=== PATIENT | female | born 1935 | race Caucasian/White ===

== ENCOUNTER 2019-04-22 09:58 | Outpatient (CLI) | payer MEDICARE ==
--- NOTE | 2019-04-22 11:41 | RAD ---
LEFT HAND THREE VIEWS: HISTORY: Ring finger pain since a fall three days ago. 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 There are severe arthritic changes of the triscaphe a nd first carpometacarpal joint space as well as the distal and proximal interphalangeal joints and th e metacarpophalangeal joint levels. There is an obliquely oriented intraarticular fracture involving the radial corner of the base of the proximal phalanx of the ring finger. The fracture involves both the volar and radial side and is associated with dislocation at the PIP joint. IMPRESSION: Intraarticular fracture-dislocation of the proximal interphalangeal joint of the ring finger. POS: ARAVIND
== END 2019-04-22 09:59 | disposition home or self-care (01) ==
LOC: BICRAD 09:58
PROVIDERS: ATTEND Nurse Practitioner Family
DX: M79.645 Pain in left finger(s) (principal); S62.615A Displaced fracture of proximal phalanx of left ring finger, initial encounter for closed fracture

== ENCOUNTER 2019-05-07 06:12 | Outpatient (CLI) | payer MEDICARE ==
[2019-05-07 12:47] LABS: Bacteria/HPF None Seen HPF (None Seen); Bilirubin Negative (Negative); Blood, Urine 1+ (Negative); Clarity Clear (Clear); Glucose, Urine (Dipstick) Normal (Negative); Leukocyte 250 Leu/uL (Negative); Nitrite Negative (Negative); Protein, Urine (Dipstick) Negative (Neg-Trace); Urobilinogen Normal mg/dL (Less than 2)
[2019-05-07 13:00] LABS: Anion Gap 14 mmol/L (10-20); BUN (Urea Nitrogen) 21 mg/dL (9.8-20.1); Calc. Creatinine Clearance 0 mL/min (70-130); Calcium 9.4 mg/dL (7.8-10.44); Carbon Dioxide 26 mmol/L (23-31); Chloride 104 mmol/L (98-107); Estimated GFR-MDRD 71; Glucose 130 mg/dL (83-110); Potassium 4.4 mmol/L (3.5-5.1); Sodium 140 mmol/L (136-145)
[2019-05-07 13:31] LABS: Band 4 % (5-11); Eosinophils 2 % (0-10); Hemoglobin 12.9 g/dL (12.0-16.0); Lymphocytes 22 % (21-51); MDiff Complete? YES; Mean Corpuscular HGB CONC 32.8 g/dL (32.0-36.0); Mean Corpuscular Hemoglobin 31.4 pg (27.0-31.0); Mean Corpuscular Volume 95.5 fL (78.0-98.0); Mean Platelet Volume 6.3 fL (7.4-10.4); Monocytes 8 % (0-10); Neutrophil 64 % (42-75); Platelet Count 352 thou/uL (130-400); RBC Distribution Width 10.9 % (11.5-14.5); RBC Morphology Normal; Red Blood Cell (RBC) Count 4.11 mill/uL (4.20-5.40); White Blood Cell (WBC) Count 7.4 thou/uL (4.8-10.8)
--- NOTE | 2019-05-12 12:54 | EKG ---
Test Reason : Blood Pressure : / mmHG Vent. Rate : 075 BPM Atrial Rate : 075 BPM P-R Int : 152 ms QRS Dur : 072 ms QT Int : 392 ms P-R-T Axes : 076 060 059 degrees QTc Int : 437 ms Normal sinus rhythm Normal ECG No previous ECGs available Confirmed by CASSANDRA COTTON (2) on 05/12/2019 12:54:22 PM Referred By: [email or web address] Confirmed By:CASSANDRA COTTON
== END 2019-05-07 06:13 | disposition home or self-care (01) ==
LOC: LABBT 06:12
PROVIDERS: ATTEND Orthopaedic Surgery Hand Surgery
DX: Z01.818 Encounter for other preprocedural examination (principal); S62.605A Fracture of unspecified phalanx of left ring finger, initial encounter for closed fracture
CPT/HCPCS: 80048; 81001; 85007; 85027; 93005; 93010

== ENCOUNTER 2019-05-08 11:53 | Day surgery (SDC) | payer MEDICARE ==
[2019-05-07 11:59] VITALS: BMI 20.7
[~2019-05-08 11:53] MED LIST: Dexamethasone 20 MG/5 ML VIAL ONE; Lidocaine 1% PF 5 ML VIAL ONE; Ondansetron PF 4 MG/2 ML Vial ONE; PROPOFOL 200 MG/20 ML VIAL ONE; ePHEDrine/0.9% NaCl/PF SYRINGE 50 mg/10 ml ONE
[2019-05-08] MEDS ORDERED: Sodium Chloride 0.9% 10 ML ONE (13:36)
[2019-05-08] MEDS ORDERED: Bupivacaine PF 0.5% 30 ML VIAL ONE (13:36)
[2019-05-08] MEDS ORDERED: Bacitracin Zinc Ointment 30 gm TUBE ONE (13:36)
[2019-05-08] MEDS ORDERED: Fentanyl 100 MCG/2 ML VIAL ONE (13:53)
[2019-05-08] MEDS ORDERED: Ondansetron PF 4 MG/2 ML Vial ONE (17:16)
--- NOTE | 2019-05-08 18:05 | RAD ---
3 views left fourth finger: 05/08/2019 COMPARISON: 04/22/2019 HISTORY: ORIF FINDINGS: 3 intraoperative images are provided demonstrating placement of multiple screws traversing the previously noted fracture at the base of the fourth middle phalanx. IMPRESSION: Intraoperative imaging as above.
--- NOTE | 2019-05-09 14:23 | OP ---
DATE OF PROCEDURE: 05/08/2019 PREOPERATIVE DIAGNOSIS: Left proximal phalangeal joint dorsal fracture, dislocation with 65% comminuted volar lip fragment. FINDINGS: Volar lip fragment with 65% to 70% of articular surface including the comminution even underneath the dorsal portion which would not hold fixation. PROCEDURES PERFORMED: 1. Open reduction and internal fixation, left ring finger, middle phalanx base fracture and fracture, dislocation using flor-hamate bone graft. 2. Bone graft to the hamate with fixation. 3. C-arm supervision. SPECIMEN REMOVED: Crushed 65% of joint surface in the sagittal plane. TOURNIQUET TIME: 120 minutes. ESTIMATED BLOOD LOSS: 20 mL. DESCRIPTION OF PROCEDURE: After successful general endotracheal anesthesia, the limb was prepped and draped. Initially, gave her 10 mL of 0.5% Marcaine block at metacarpophalangeal joint and 10 at the flor-hamate approach site. We initially inflated tourniquet, exsanguinated the limb for 30 seconds, and made a palmar approach. We initially released the collateral ligament's midportion on the radial side where there was a fragment off radially and left the volar plate on the entire central and ulnar 1/2. With this, with volar plate still attached to the fragment, we made several gentle attempts to do a reduction with fixation, but the fragment not even hold a 1.0 K-wire. For this reason, we removed the fragment, we then made a complete approach to "shotgun" the joint. We released the contralateral ulnar collateral, released the volar plate off the fragment, maintained as much volar plate as possible and then, released the same radial side insertion of the flexor digitorum superficialis by about 1/3. We also released 1/3 of the A3 bing and the flexor tendon sheath. We then were able to take the entire tendon mass ulnarly, and we were able to completely shotgun back to back the base of the middle phalanx with the proximal phalanx neck. With this, we saw that there was only a 3.5 mm rim of bone left with an area that should be almost 11 mm to 12 mm, so I felt the 2/3 of the surface was comminuted. With this in mind, we saw to harvest a piece of flor-hamate that would allow us to have approximately 11 mm concentric surface to maintain a bony stability. We then on shotgun of the joint, placed a moist Ray-Meg sponge with normal saline and then proceeded to the 4th and 5th carpometacarpal joints. With C-arm guidance to make a small incision possible in the zigzag incision, we dissected and found the superficial ulnar nerve branches and protected them. We then retracted the extensor tendons and visualized the capsule over the 4th and 5th interspaces right into the lip between the 2 metacarpal bases. We had measured a width of approximately 1 cm and we knew what depth we needed, so we then planned with a sagittal saw a box shaped cut. We distracted maximally the joint surface and using 2 small curved osteotomes was able to extract the articular surface without comminution even though her bone was very osteopenic. We then took it back to back table, shaved it, reversed the articular surface, so that it would match and now we had a total of 11 mm of articular surface. We then gently rongeured the surface of the match with a concavity, and then placed a fixation wire central to hold in place. We measured amount of wire and it was a 10, so we felt we had a 10-11 reconstruction total with counting the flor-hamate graft and the 1/3 dorsal piece still in place. We then placed two 1.1 screws. The 1st one in the lag position and the 2nd one standard without protrusion and without comminution of the graft or the articular surface. It easily reduced the main concentric from 30 to 60 degrees and even concentric in full extension. We then closed the volar plate portion on the ulnar side back to the collateral ligament, repaired the collateral ligament on the radial side, repaired the 1/3 of portion of the A3 bing with a 3-0 suture and reduced the flexor tendons. C-arm confirmed the joint was concentric. No visible step-off was seen with true lateral projection with C-arm and the total surface measured approximately 11 mm. The patient then had the hemostasis obtained at the articular surface at the base of the carpometacarpal joints, 4th and 5th and we released the tourniquet. We then shaved a piece of a cancellous bone graft to fit the defect, and used a 14 screw to hold this in place obliquely, a 1.3 size from the AO/KENNY hand variable angle set. The patient had the C-arm to make final pictures, again it was stable from 0 to 60 degrees. After closing the incision, obtained hemostasis, at the finger with just 4-0 nylon, in 30 degrees of palmar flexion. We then turned attention to the 4th and 5th carpometacarpal wounds. We closed the joint capsule over the carpometacarpal joint with interrupted [id number] 3-0 Vicryl. We used 4-0 nylon in interrupted simple pattern to close the dermis, epidermis. We gave an additional 6 mL in the metacarpal portion of the finger for additional block and additional 4 on the hamate harvest site. The patient had a smooth range of motion in that range and not tested beyond the range listed, placed in the splint which included the ring finger, small finger, and middle finger leaving the index finger free and the digits were pink. She left the operating room without evidence of anesthetic or operative complication. Job ID: [id number]
== END 2019-05-08 19:30 | disposition home or self-care (01) ==
LOC: SDC 11:53
PROVIDERS: ATTEND Orthopaedic Surgery Hand Surgery
PROC: 0PSV04Z Reposition Left Finger Phalanx with Internal Fixation Device, Open Approach (ICD-10-PCS; principal; 2019-05-08)
DX: S62.625A Displaced fracture of middle phalanx of left ring finger, initial encounter for closed fracture (principal); M81.0 Age-related osteoporosis without current pathological fracture; Z79.82 Long term (current) use of aspirin; Z79.899 Other long term (current) drug therapy
CPT/HCPCS: 76000; C1713; J0690; J1100; J2001; J2405; J2704; J3010; J3490; S0020

== ENCOUNTER 2019-06-26 09:28 | Outpatient (CLI) | payer MEDICARE ==
[2019-06-26 16:23] LABS: #Eosinphils 0.1 thou/uL (0.0-0.7); #Lymphocytes 2.4 thou/uL (1.20-3.40); #Monocytes 0.8 thou/uL (0.11-0.59); #Neutrophils 3.4 thou/uL (1.40-6.50); %Basophils 0.5 % (0.0-1.0); %Eosinophils 1.8 % (0.0-10.0); %Lymphocytes 35.4 % (21.0-51.0); %Monocytes 11.8 % (0.0-10.0); %Neutrophils 50.5 % (42.0-75.0); Hemoglobin 13.2 g/dL (12.0-16.0); Mean Corpuscular HGB CONC 33.2 g/dL (32.0-36.0); Mean Corpuscular Hemoglobin 31.8 pg (27.0-31.0); Mean Corpuscular Volume 95.7 fL (78.0-98.0); Platelet Count 253 thou/uL (130-400); RBC Distribution Width 11.3 % (11.5-14.5); Red Blood Cell (RBC) Count 4.16 mill/uL (4.20-5.40); White Blood Cell (WBC) Count 6.6 thou/uL (4.8-10.8)
[2019-06-26 16:44] LABS: Anion Gap 9 mmol/L (10-20); BUN (Urea Nitrogen) 20 mg/dL (9.8-20.1); Calc. Creatinine Clearance 0 mL/min (70-130); Calcium 8.9 mg/dL (7.8-10.44); Carbon Dioxide 31 mmol/L (23-31); Chloride 105 mmol/L (98-107); Estimated GFR-MDRD 73; Glucose 104 mg/dL (83-110); Sodium 141 mmol/L (136-145)
--- NOTE | 2019-06-28 15:23 | EKG ---
Test Reason : Blood Pressure : / mmHG Vent. Rate : 072 BPM Atrial Rate : 072 BPM P-R Int : 154 ms QRS Dur : 066 ms QT Int : 408 ms P-R-T Axes : 073 082 044 degrees QTc Int : 446 ms Normal sinus rhythm Normal ECG When compared with ECG of 07-MAY-2019 12:12, No significant change was found Confirmed by DR. Rayo PATRICK ([id number]) on 06/28/2019 3:23:11 PM Referred By: LEEANNA Confirmed By:DR. Rayo PATRICK
== END 2019-06-26 09:29 | disposition home or self-care (01) ==
LOC: LABBT 09:28
PROVIDERS: ATTEND Orthopaedic Surgery Hand Surgery
DX: Z01.818 Encounter for other preprocedural examination (principal); S62.625A Displaced fracture of middle phalanx of left ring finger, initial encounter for closed fracture
CPT/HCPCS: 80048; 85025; 93005; 93010

== ENCOUNTER 2019-06-28 08:52 | Day surgery (SDC) | payer MEDICARE ==
[2019-06-26 13:43] VITALS: BMI 21.9
[2019-06-28] MEDS ORDERED: Bacitracin Zinc Ointment 30 gm TUBE ONE (12:26)
[2019-06-28] MEDS ORDERED: Bupivacaine PF 0.5% 30 ML VIAL ONE (12:26)
[2019-06-28] MEDS ORDERED: PHENYLEPHRINE-NS 100 MCG/ML 10 ML SYRINGE ONE (14:27)
[2019-06-28] MEDS ORDERED: Ondansetron PF 4 MG/2 ML Vial ONE (14:27)
[2019-06-28] MEDS ORDERED: ePHEDrine/0.9% NaCl/PF SYRINGE 50 mg/10 ml ONE (14:27)
[2019-06-28] MEDS ORDERED: Lidocaine 1% PF 5 ML VIAL ONE (14:27)
[2019-06-28] MEDS ORDERED: PROPOFOL 200 MG/20 ML VIAL ONE (14:27)
--- NOTE | 2019-06-28 14:35 | RAD ---
Left ring finger 3 views intraoperative fluoroscopy HISTORY: Internal/external fixation. FINDINGS: Intraoperative fluoroscopy was provided for internal fixation as performed by Dr. Herring. Spot fluoroscopic images show small screws transfixing the base of phalanx. Sequential placement of external pins with external fixation device. Fluoroscopy time 63 seconds.
--- NOTE | 2019-07-01 11:51 | OP ---
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 PROCEDURE PERFORMED: 1. Closed reduction of the joint with fixation using external fix rubber band technique, 0.045 K-wires x3. 2. C-arm supervision. ESTIMATED BLOOD LOSS: 5 mL. FINDINGS: After this was placed, the patient easily had passive range of motion of -5 extension to 85 degrees and she was placed in a splint at 30 degrees of flexion after 20 degrees of flexion and some dorsal subluxation seen despite being 5 weeks since procedure. DESCRIPTION OF PROCEDURE: After successful general endotracheal anesthesia, limb was prepped and draped. The patient then had the C-arm brought into field, performed just mild distraction and we were able to reduce the joint nearly anatomically. This took marked pressure off the junction at the fracture line, where she had approximately 1.5 mm graft. We then placed under sterile technique using C-arm a 0.045 K-wire in the center of the base of the head and neck junction of the distal portion of the middle of the digit, proximal phalanx, another K-wire in the same position in the middle phalanx, and then bent the 1st K-wire 3 mm from the skin edge and parallel as possible to the digit itself in a slightly more dorsal position. Then, we bent both of these wires appropriately to receive the rubber bands. Placed a separate K-wire in the dorsal slightly more palmar than dorsal to place a palmar flexion attitude 1 cm from the PIP joint in the middle phalanx and then used this and bent this around the long K-wire to help place a palmar flexion attitude. Once this was done, a wire was placed. We had a 2 mm distracted joint, congruent with the wires in place and we could do easy flexion without abnormality to 90 degrees and could extend the joint to 0 and it did not dislocate. The patient then had the wires covered, a bulky dressing applied with antibiotic dressing around the pin tract, a splint applied to the injured ring finger and small finger in the position of 30 degrees of flexion and the patient left the operating room without evidence of anesthetic or operative complication after given a total of 50 mL of 0.5% Marcaine at the ring finger metacarpophalangeal joint block. Job ID: [id number]
== END 2019-06-28 16:45 | disposition home or self-care (01) ==
LOC: SDC 08:52
PROVIDERS: ATTEND Orthopaedic Surgery Hand Surgery
PROC: 0PSVXZZ Reposition Left Finger Phalanx, External Approach (ICD-10-PCS; principal; 2019-06-28)
DX: S62.615A Displaced fracture of proximal phalanx of left ring finger, initial encounter for closed fracture (principal); M24.542 Contracture, left hand; M81.0 Age-related osteoporosis without current pathological fracture; H91.93 Unspecified hearing loss, bilateral; Z79.810 Long term (current) use of selective estrogen receptor modulators (SERMs); Z79.82 Long term (current) use of aspirin; Z79.899 Other long term (current) drug therapy; Z98.890 Other specified postprocedural states; X58.XXXA Exposure to other specified factors, initial encounter
CPT/HCPCS: 76000; J0690; J2001; J2405; J2704; J3490; S0020